=== PATIENT | male | born 1965 | race Caucasian/White ===

== ENCOUNTER 2020-08-03 06:54 | Day surgery (SDC) | payer OTHER ==
[2020-07-31 13:17] LABS: BASOPHILS % (AUTO) 0.3 % (0.0-5.0); EOSINOPHILS % (AUTO) 1.3 % (0.0-8.0); HEMATOCRIT 41.1 % (42-54); LYMPHOCYTES % (AUTO) 26.1 % (21.0-51.0); MEAN CORPUSCULAR HEMOGLOBIN 34.2 pg (27.0-33.0); MEAN CORPUSCULAR VOLUME 97.6 fL (79-99); MONOCYTES % (AUTO) 11.2 % (3.0-13.0); NEUTROPHILS % (AUTO) 60.9 % (40.0-77.0); PLATELET COUNT (AUTO) 240 K/uL (130-400); RED BLOOD CELL COUNT(AUTO) 4.21 MIL/uL (4.50-6.20); RED CELL DISTRIBUTION WIDTH 12.2 % (11.0-15.5); WHITE BLOOD COUNT (AUTO) 6.3 K/uL (4.8-10.8)
[2020-07-31 13:25] LABS: CREATININE 0.8 mg/dL (0.5-1.5); POTASSIUM 3.8 mmol/L (3.5-5.1)
[2020-08-02 16:19] VITALS: BP 150/74
[~2020-08-03] VITALS: Ht 175.3 cm; Wt 77.8 kg
[2020-08-03] VITALS (22 sets, daily range): BP systolic 137–165; BP diastolic 80–97
[~2020-08-03 06:54] MED LIST: CEFTRIAXONE SODIUM 1 GM IVP SCH; EMTR1TAB12 PO; LISI-617 PO; METF-446 PO; TAMS-1 PO; VALA500T42 PO
[2020-08-03] MEDS ORDERED: SODIUM CHLORIDE 0.9% 1000ML 1,000 ML IV ONE (07:45)
[2020-08-03] MEDS ORDERED: LIDOCAINE PF 2% 5ML ABBOJECT ONE (09:48)
[2020-08-03] MEDS ORDERED: PROPOFOL 10 MG/ML 20ML VIAL IV ONE (09:48)
[2020-08-03] MEDS ORDERED: SUCCINYLCHOLINE 200MG/10ML SYR ONE (09:48)
[2020-08-03] MEDS ORDERED: FENTANYL CITRATE PF 50 MCG/1 ML 2ML VIAL ONE ×2 (09:48→11:08)
[2020-08-03] MEDS ORDERED: CEFTRIAXONE SODIUM 1 GM IVP ONE (10:10)
[2020-08-03] MEDS ORDERED: MEPERIDINE-PF 25 MG/ML SYG ONE ×2 (10:41→12:23)
[2020-08-03] MEDS ORDERED: OPIUM/BELLADONNA ALKALOIDS 1 EACH SUPP.RECT RC ONE (11:08)
[2020-08-03] MEDS ORDERED: ONDANSETRON HCL 4 MG/2 ML VIAL ONE (11:09)
[2020-08-03] MEDS ORDERED: AMINOCAPROIC ACID 250 MG/ML 20 ML VIAL ONE (11:27)
[2020-08-03] MEDS ORDERED: PHENAZOPYRIDINE HCL 200 MG TABLET ONE (12:32)
== END 2020-08-03 14:15 | disposition home or self-care (01) ==
LOC: DAH 06:54
PROVIDERS: ATTEND Urology
DX: N40.1 Benign prostatic hyperplasia with lower urinary tract symptoms (principal); Z20.828 Contact with and (suspected) exposure to other viral communicable diseases; R33.8 Other retention of urine; R35.1 Nocturia; R39.14 Feeling of incomplete bladder emptying; N35.919 Unspecified urethral stricture, male, unspecified site; N32.89 Other specified disorders of bladder; I10 Essential (primary) hypertension; E78.5 Hyperlipidemia, unspecified; E11.9 Type 2 diabetes mellitus without complications; Z79.899 Other long term (current) drug therapy; Z98.890 Other specified postprocedural states; Z88.8 Allergy status to other drugs, medicaments and biological substances; Z79.890 Hormone replacement therapy
CPT/HCPCS: 36415; 52648; 80048; 82948 ×2; 85025; 93005; A4215; A4216; A4221; A4222; A4223 ×3; A4340; A4354; A4358; A4510; A4600; A4606; A4663; A4930; C9803; J0330; J0696 ×2; J2001; J2175 ×2; J2405; J2704; J3010 ×2; J3490; J7030 ×2; U0003

== ENCOUNTER → 2020-08-06 | Emergency (ER) | payer OTHER ==
[~2020-08-06] MED LIST changes: -CEFTRIAXONE SODIUM 1 GM IVP SCH; +CEFTRIAXONE SODIUM 1 GM ONE; +HYDROMORPHONE HCL 0.5 MG/0.5 ML ML ONE; +L.E.T. GEL 4%/0.5%/0.18% 3ML 3 ML/SYR SYG TP ONE; +ONDANSETRON HCL 4 MG/2 ML VIAL ONE
[2020-08-06 21:58] LABS: BASOPHILS % (AUTO) 0.2 % (0.0-5.0); EOSINOPHILS % (AUTO) 0.1 % (0.0-8.0); HEMATOCRIT 49.1 % (42-54); MEAN CORPUSCULAR HEMOGLOBIN 33.8 pg (27.0-33.0); MEAN CORPUSCULAR HGB CONC 35.8 g/dL (32.0-36.0); MEAN CORPUSCULAR VOLUME 94.4 fL (79-99); MONOCYTES % (AUTO) 8.5 % (3.0-13.0); NEUTROPHILS % (AUTO) 84.6 % (40.0-77.0); PLATELET COUNT (AUTO) 304 K/uL (130-400); RED CELL DISTRIBUTION WIDTH 11.9 % (11.0-15.5); WHITE BLOOD COUNT (AUTO) 10.5 K/uL (4.8-10.8)
[2020-08-06 22:09] LABS: CREATININE 1.8 mg/dL (0.5-1.5); POTASSIUM 4.3 mmol/L (3.5-5.1)
[2020-08-06 22:14] LABS: ALBUMIN 3.9 g/dL (3.5-5.0); BILIRUBIN,TOTAL 0.6 mg/dL (0.2-1.0); TOTAL PROTEIN, SERUM 7.4 g/dL (6.0-8.3)
[2020-08-06 23:10] LABS: APPEARANCE,URINE TURBID (CLEAR); BILIRUBIN,URINE Small (NEGATIVE); GLUCOSE, URINE (UA) Negative (NEGATIVE); KETONES,URINE Negative (NEGATIVE); LEUKOCYTE ESTERASE ,URINE Moderate (NEGATIVE); NITRATE,URINE Positive (NEGATIVE); OCCULT BLOOD,URINE Large (NEGATIVE); PROTEIN,URINE 300 mg/dL (NEGATIVE)
[2020-08-06 23:11] LABS: COLOR,URINE BROWN (YELLOW)
[2020-08-06 23:12] LABS: BACTERIA,URINE Few /HPF (None Seen); RBC,URINE Full Field /HPF (0-1); SQUAMOUS EPITHELIAL CELL,UR Rare /HPF (0-2)
== END ==
LOC: EDH 20:36
DX: N39.0 Urinary tract infection, site not specified (principal); N20.9 Urinary calculus, unspecified; I10 Essential (primary) hypertension; Z88.5 Allergy status to narcotic agent
CPT/HCPCS: 36415; 51702; 76770; 80053; 81001; 85025; 87088; 96374; 96375; 99284; J0696; J1170; J2405